=== PATIENT | male | born 1985 | race Two or more races ===

== ENCOUNTER 2017-11-02 22:51 | Emergency (ER) | payer MEDICAID ==
[~2017-11-02] VITALS: Ht 172.7 cm; Wt 64.0 kg
[2017-11-03 04:33] VITALS: BP 107/64
== END 2017-11-03 04:33 | disposition home or self-care (01) ==
LOC: ER 22:51
DX: T42.4X1A Poisoning by benzodiazepines, accidental (unintentional), initial encounter (principal); F41.9 Anxiety disorder, unspecified; Z86.59 Personal history of other mental and behavioral disorders; Y92.89 Other specified places as the place of occurrence of the external cause
CPT/HCPCS: 82962; 99283; Z7610